=== PATIENT | male | born 1960 | race Caucasian/White ===

== ENCOUNTER 2016-07-24 08:57 | Day surgery (SDC) | payer OTHER ==
[~2016-07-24] VITALS: Ht 172.7 cm; Wt 64.6 kg
[2016-07-24 09:46] VITALS: Ht 172.7 cm; Wt 64.6 kg
[2016-07-24] MEDS ORDERED: ADVIL PO (09:56)
[2016-07-24] MEDS ORDERED: CLARITIN PO (09:56)
[2016-07-24 09:57] VITALS: BP 132/77; PULSE 66; RESP 19
[2016-07-24] MEDS ORDERED: FENTAnyl 50 MCG/ML VIAL ONE (11:07)
[2016-07-24] MEDS ORDERED: MIDAZOLAM 1 MG/ML 2 ML INJ ONE ×2 (11:07)
[2016-07-24 11:33] VITALS: BP 114/73; RESP 20
--- NOTE | 2016-07-24 12:09 | GILP ---
DATE OF PROCEDURE: NAME OF PROCEDURES: 1. Esophagogastroduodenoscopy and biopsy. 2. Colonoscopy. SURGEON: Asmita Degroot MD PREOPERATIVE DIAGNOSES: 1. Abdominal pain. 2. Screening colonoscopy. POSTOPERATIVE DIAGNOSES: 1. Gastritis. 2. Biopsy was positive for Helicobacter pylori infection. 3. Hiatal hernia. 4. Gastroesophageal reflux disease. 5. Colonoscopy all the way to the cecum. 6. Internal hemorrhoids. 7. No colon neoplasm was identified. INDICATION FOR THE PROCEDURE: Mr. Jayson Bhandari is a 56-year-old male patient who was scheduled for upper endoscopy and colonoscopy because of upper abdominal pain not responding to therapy for screen ing colonoscopy. The procedures and possible complications were well explained to the patient, he understood and cons ented to the procedures. DESCRIPTION OF PROCEDURE: Under the influence of fentanyl and Versed, the gastroscope was carefully introduced into the esophagus and under direct vision, it was advanced to the stomach and through t he pylorus into the duodenal bulb and descending duodenum. FINDINGS: ESOPHAGUS: The patient had hiatal hernia and gastroesophageal reflux disease. STOMACH: He had gastritis with erosions. Gastric mucosal biopsies were taken for H pylori test and it was positive. DUODENUM: Normal. The colonoscope was carefully introduced in the rectum and under direct vision, it was advanced all the way to the cecum. FINDINGS: The patient was noted to have internal hemorrhoids. No colon neoplasm was identified. He tolerated the procedures very well, and there was no complication from the procedures. At the en d of the procedures, he was awake with stable vital signs, and he was discharged home to the care of his family. IMPRESSION: Please see postoperative diagnoses. PLAN: 1. Omeprazole 40 mg p.o. b.i.d. for 14 days. 2. Doxycycline 100 mg p.o. b.i.d. for 14 days. 3. Flagyl 500 mg p.o. b.i.d. for 14 days. 4. Pepto-Bismol 2 tablets p.o. q.i.d. for 14 days. 5. Next screening colonoscopy in 10 years. Dictated By: ASMITA JOHNSON/JULIO Conf#: [id number] DID#: [id number]
== END 2016-07-24 13:34 | disposition home or self-care (01) ==
LOC: GIL 08:57
PROVIDERS: ATTEND Internal Medicine Gastroenterology
DX: Z12.11 Encounter for screening for malignant neoplasm of colon (principal); K29.70 Gastritis, unspecified, without bleeding; K44.9 Diaphragmatic hernia without obstruction or gangrene; K21.9 Gastro-esophageal reflux disease without esophagitis; K64.8 Other hemorrhoids; B96.81 Helicobacter pylori [H. pylori] as the cause of diseases classified elsewhere
CPT/HCPCS: 43239; 45378; 87081; J2250; J3010